=== PATIENT | female | born 1935 | race Caucasian/White ===

== ENCOUNTER 2017-07-26 13:56 | Emergency (ER) | payer MEDICARE, BC ==
[2017-07-26 14:14] VITALS: BP 115/70
--- NOTE | 2017-07-26 15:17 | RAD ---
INDICATION: Left wrist pain COMPARISON: None TECHNIQUE: AP, lateral, and oblique views were obtained. FINDINGS: There is no acute bony change. There is advanced osteoarthritis about the first carpometacarpal articulation. There is carpal joint space narrowing with cystic change consistent with chronic degenerative change. There is mild radiocarpal osteoarthritis. There is metacarpophalangeal joint space narrowing. There is advanced osteoarthritis of the IP joint of the thumb. IMPRESSION: ADVANCED OSTEOARTHRITIS
--- NOTE | 2017-07-26 15:18 | RAD ---
HISTORY: Left hand pain COMPARISONS: None VIEWS: 4, Frontal, lateral, and oblique views of the left hand. Evaluation is limited by the lack of true lateral projection. FINDINGS: BONE DENSITY: There is diffuse osteopenia. BONES: There is no displaced fracture. JOINTS: There is advanced osteoarthritis of the first CMC joint and of the interphalangeal joints. There is dystrophic ossification of the base of the fifth metacarpal. ALIGNMENT: There is no dislocation. SOFT TISSUES: Unremarkable. OTHER FINDINGS: None. IMPRESSION: 1. OSTEOPENIA. 2. OSTEOARTHRITIS. 3. NO ACUTE OSSEOUS INJURY. THE DEGREE OF OSTEOPENIA MAY MAKE A NONDISPLACED FRACTURE RADIOGRAPHICALLY OCCULT. IF SYMPTOMS PERSIST, RECOMMEND REPEAT IMAGING.
--- NOTE | 2017-07-26 17:33 | UC ---
Jaja Sullivan Thomas, scribed for Kip Mendez MD on 07/26/17 at 1450 . Minor Trauma HPI - HPI Summary HPI Summary: The patient is an 81 year old female presenting to Urgent Care complaining of left facial bruising and swelling status post an accidental fall that occurred yesterday. The patient was walking on the sidewalk when she slipped on the ice. She reports falling on her left-sided face, left hand, and left knee. The pain is rated 4/10. Patient additionally c/o left hand pain, left knee pain, and a laceration to her left eyebrow area. The patient has applied ice to her left hand. Patient denies loss of consciousness, eye pain, back pain, and neck pain. She is not on any blood thinners. - History of Current Complaint Chief Complaint: UCTrauma Stated Complaint: FACIAL, KNEE AND HAND INJURY Time Seen by Provider: 07/26/17 14:37 Hx Obtained From: Patient Onset/Duration: Lasting Days - 1, Still Present Onset Of Pain: Immediate Severity Currently: Moderate Pain Intensity: 4 Pain Scale Used: 0-10 Numeric Mechanism Of Injury: Fall From A Standing Position Alleviating Factor(s): Ice Associated Signs And Symptoms: Positive: Ecchymosis, Swelling, Other: - facial laceration, left hand pain, left knee pain; NEGATIVE: eye pain, back pain, neck pain. Negative: Loss Of Consciousness Related History: Negative: Anticoagulants - Allergies/Home Medications Allergies/Adverse Reactions: Allergies Allergy/AdvReac Type Severity Reaction Status Date / Time Erythromycin Allergy Nausea And Verified 07/26/17 14:14 Vomiting Nickel Allergy Hives Verified 07/26/17 14:15 Wool Allergy Rash And Uncoded 07/26/17 14:15 Itching Home Medications: Home Medications B-Complex Vitamins [Vitamin B Complex] 1 tab PO DAILY 07/26/17 [History Confirmed 07/26/17] Cholecalciferol [Vitamin D] 1,000 unit PO DAILY 07/26/17 [History Confirmed ] Cyclobenzaprine TAB* [Flexeril 10 MG TAB*] 10 mg PO BID 07/26/17 [History Confirmed 07/26/17] Cyclosporine 0.05% OPHTH (NF) [Restasis 0.05% OPHTH] 1 drop BOTH EYES BID [History Confirmed 07/26/17] Levothyroxine TAB* [Synthroid TAB*] 50 mcg PO DAILY 07/26/17 [History Confirmed 07/26/17] Magnesium [Magnesium 400 mg] 1 tab PO DAILY 07/26/17 [History Confirmed 07/26/17 ] Metoprolol Succinate [Toprol Xl] 50 mg PO BID 07/26/17 [History Confirmed ] Ranitidine HCl (Nf) [Zantac] 50 mg PO TID PRN 07/26/17 [History Confirmed ] celeCOXIB CAP* [Celebrex CAP*] 200 mg PO DAILY 07/26/17 [History Confirmed 07/26] PMH/Surg Hx/FS Hx/Imm Hx Previously Healthy: No - Fibromyalgia, Factor V clotting, osteoarthritis - Surgical History Surgical History: Yes Surgery Procedure, Year, and Place: Right eye fistula repair; D & C; Needle aspiration of bilateral breast - Family History Known Family History: Positive: Other - Patient denies relevant FHx - Social History Alcohol Use: Rare Substance Use Type: None Smoking Status (MU): Never Smoked Tobacco - Immunization History Most Recent Influenza Vaccination: 07/2017 Review of Systems Skin: Bruising, Other - Laceration to left eyebrow area ENT: Other - Facial swelling Musculoskeletal: Other: - Left hand pain, left knee pain Is Patient Immunocompromised?: No All Other Systems Reviewed And Are Negative: Yes Physical Exam Triage Information Reviewed: Yes Vital Signs: Initial Vital Signs Temp 98.8 F 07/26/17 14:06 Pulse 87 07/26/17 14:06 Resp 18 07/26/17 14:06 BP 115/70 07/26/17 14:06 Pulse Ox 100 07/26/17 14:06 Vital Signs Reviewed: Yes - Additional Comments VITAL SIGNS: Reviewed. GENERAL: Patient is a well-developed and nourished female who is lying comfortable in the stretcher. Patient is not in any acute respiratory distress. HEAD AND FACE: Normocephalic. She has facial ecchymosis above the left eye. She has a laceration approximately half a centimeter from yesterday, so there is no sense to suture the laceration. EYES: PERRLA, EOMI x 2. EARS: Hearing grossly intact. MOUTH: Oropharynx within normal limits. NECK: Supple, trachea is midline, no adenopathy, no JVD, no carotid bruit. CHEST: Symmetric, no tenderness at palpation LUNGS: Clear to auscultation bilaterally. No wheezing or crackles. CVS: Regular rate and rhythm, S1 and S2 present, no murmurs or gallops appreciated. ABDOMEN: Soft, non-tender. Bowel sounds are normal. No abdominal abnormal pulsations. EXTREMITIES: Full ROM in all major joints, no edema, no cyanosis or clubbing. NEURO: Alert and oriented x 3. No acute neurological deficits. Speech is normal and follows commands. SKIN: Dry and warm Procedures - Procedure Summary Procedure Summary: PROCEDURE NOTE: A cock-up splint was applied. Diagnostics - Radiology Hand XR Xray Interpretation: No Acute Changes - 1. OSTEOPENIA. 2. OSTEOARTHRITIS. 3. NO ACUTE OSSEOUS INJURY. THE DEGREE OF OSTEOPENIA MAY MAKE A NONDISPLACED FRACTURE RADIOGRAPHICALLY OCCULT. IF SYMPTOMS PERSIST, RECOMMEND REPEAT IMAGING. Dr. Mendez has viewed this report. Radiology Interpretation Completed By: Radiologist Wrist XR Xray Interpretation: No Acute Changes - ADVANCED OSTEOARTHRITIS. Dr. Mendez has viewed this report. Radiology Interpretation Completed By: Radiologist Minor Trauma Course/Dx - Course Course Of Treatment: The patient is an 81 year old female presenting to Urgent Care complaining of left facial bruising and swelling status post an accidental fall that occurred yesterday. The patient was walking on the sidewalk when she slipped on the ice. She reports falling on her left-sided face, left hand, and left knee. The pain is rated 4/10. Patient additionally c/o left hand pain, left knee pain, and a laceration to her left eyebrow area. The patient has applied ice to her left hand. Patient denies loss of consciousness, eye pain, back pain, and neck pain. She is not on any blood thinners. The patient declines a CT of the face. We will do an X-ray of the left hand. Hand and wrist radiographs are negative for fracture. The patient is diagnosed with wrist pain , wrist sprain. A cock-up splint was applied. The patient will be discharged home and instructed to follow up with primary care. - Differential Dx/Diagnosis Differential Diagnosis/HQI/PQRI: Contusion(s), Fracture, Dislocation, Sprain, Strain Provider Diagnoses: Wrist pain, wrist sprain Discharge - Discharge Plan Condition: Stable Disposition: HOME Patient Education Materials: Splint Care (ED), Wrist Sprain (ED) Referrals: [facility] [Outside] - 3 Days Additional Instructions: Follow up with your primary care physician in 3 days. Return to urgent care for any new or worsening symptoms. The documentation as recorded by the Jaja almaraz Thomas accurately reflects the service I personally performed and the decisions made by me, Kip Mendez MD.
== END 2017-07-26 15:42 | disposition home or self-care (01) ==
LOC: UCEAST 13:56
DX: S63.502A Unspecified sprain of left wrist, initial encounter (principal); S00.83XA Contusion of other part of head, initial encounter; S01.112A Laceration without foreign body of left eyelid and periocular area, initial encounter; M25.562 Pain in left knee; M19.90 Unspecified osteoarthritis, unspecified site; M54.9 Dorsalgia, unspecified; Z88.1 Allergy status to other antibiotic agents; Z91.048 Other nonmedicinal substance allergy status; W00.0XXA Fall on same level due to ice and snow, initial encounter; Y93.01 Activity, walking, marching and hiking; Y92.9 Unspecified place or not applicable
CPT/HCPCS: 99202; G0463